=== PATIENT | female | born 1960 | race Caucasian/White ===

== ENCOUNTER 2017-11-17 08:56 | Emergency (ER) | payer BC ==
[2017-11-17 09:02] VITALS: RESP 18
[2017-11-17] MEDS ORDERED: MAG HYDROX/AL HYDROX/SIMETH 30 ML, HYOSCYAMINE ELIXIR 10 ML, CIMETIDINE HCL 300 MG, LID... PO STA ×4 (09:07)
--- NOTE | 2017-11-17 09:18 | ED ---
Abdominal Pain HPI - General Chief Complaint: Abdominal Pain Stated Complaint: ulcer pain Time Seen by Provider: 11/17/17 09:00 Source: patient, RN notes reviewed Mode of arrival: ambulatory Limitations: no limitations - History of Present Illness Initial Comments: This is a 57-year-old female presents emergency Department with chief complaint of epigastric pain. Patient states started swelling. She has ongoing issues with ulcers and gastritis. She states that she's had multiple scopes with no perforation and no bleeding ulcers. Patient states that she takes multiple antacids every morning states that she did take some this morning but she does not have relief of her normal symptoms. She states that she will want a GI cocktail. Patient states that she's had come the ER for the past. She states that she does not want any pain meds and is refusing lab work at this time. Denies any chest pain, shortness breath, fever, chills, diarrhea constipation. - Related Data Home Medications Medication Instructions Recorded Confirmed No Known Home Medications 11/17/17 11/17/17 Allergies Allergy/AdvReac Type Severity Reaction Status Date / Time No Known Allergies Allergy Verified 11/17/17 09:35 Review of Systems ROS Statement: Those systems with pertinent positive or pertinent negative responses have been documented in the HPI. ROS Other: All systems not noted in ROS Statement are negative. Past Medical History Past Medical History: GERD/Reflux History of Any Multi-Drug Resistant Organisms: None Reported Past Surgical History: No Surgical Hx Reported Past Psychological History: No Psychological Hx Reported Smoking Status: Current every day smoker Past Alcohol Use History: None Reported Past Drug Use History: None Reported General Exam Limitations: no limitations General appearance: alert, in no apparent distress Head exam: Present: atraumatic, normocephalic, normal inspection Neck exam: Present: normal inspection. Absent: tenderness, meningismus, lymphadenopathy Respiratory exam: Present: normal lung sounds bilaterally. Absent: respiratory distress, wheezes, rales, rhonchi, stridor Cardiovascular Exam: Present: regular rate, normal rhythm, normal heart sounds. Absent: systolic murmur, diastolic murmur, rubs, gallop, clicks GI/Abdominal exam: Present: soft, tenderness (moderate epigastric ), normal bowel sounds. Absent: distended, guarding, rebound, rigid Back exam: Absent: CVA tenderness (R), CVA tenderness (L) Skin exam: Present: warm, dry, intact, normal color. Absent: rash Course Vital Signs 11/17/17 08:59 Temperature 97.7 F Pulse Rate 79 Respiratory 18 Rate Blood Pressure 126/78 O2 Sat by Pulse 98 Oximetry Medical Decision Making - Medical Decision Making 57-year-old female presented for epigastric pain requesting GI cocktail. Patient was given GI cocktail states over symptoms have resolved. Patient states she is symptom-free. I did recommend lab work and imaging but she has refused she does understand the risk. Patient will be discharged at this time return parameters were discussed. Disposition Clinical Impression: Epigastric abdominal pain, Gastritis Disposition: HOME SELF-CARE Condition: Stable Instructions: Abdominal Pain (ED) Additional Instructions: Please return to the Emergency Department if symptoms worsen or any other concerns. Is patient prescribed a controlled substance at d/c from ED?: No Referrals: Joseph Jay DO [Primary Care Provider] - 1-2 days Time of Disposition: 09:41
[2017-11-17 09:42] VITALS: BP 127/58; PULSE 72; TEMP 97
== END 2017-11-17 09:45 | disposition home or self-care (01) ==
LOC: EC 08:56
DX: K29.70 Gastritis, unspecified, without bleeding (principal); F17.200 Nicotine dependence, unspecified, uncomplicated
CPT/HCPCS: 99283

== ENCOUNTER 2019-05-03 13:40 | Emergency (ER) | payer BC ==
--- NOTE | 2019-05-03 15:26 | XR ---
EXAMINATION TYPE: XR chest 2V DATE OF EXAM: 05/03/2019 COMPARISON: NONE HISTORY: Cough and congestion. TECHNIQUE: Frontal and lateral views of the chest are obtained. FINDINGS: There is no focal air space opacity, pleural effusion, or pneumothorax seen. The cardiac silhouette size is within normal limits. Rounded density over stomach on frontal view does not projec t over stomach on lateral view presumed external to patient. The osseous structures are intact. IMPRESSION: No suspicious acute infiltrate.
[2019-05-03] MEDS ORDERED: KETOROLAC 30 MG/ML 1 ML VIAL IM STA (15:50)
--- NOTE | 2019-05-03 15:55 | ED ---
URI HPI - General Chief Complaint: Upper Respiratory Infection Stated Complaint: bronchitis Time Seen by Provider: 05/03/19 15:38 Source: patient Mode of arrival: ambulatory Limitations: no limitations - History of Present Illness Initial Comments: Patient is a 58-year-old female presenting to the emergency Department with complaints of cough, congestion, headache for 3 days. Patient went to [facility] ago for same complaint and influenza swab was negative. Patient was started on Augmentin and has been doing [id number] medications for her cough. She states that her symptoms are still persisting and they did not do a chest x-ray at last hospital. Patient denies history of asthma or COPD. Patient has no other pertinent past medical history. Patient denies fever, chills, nausea, vomiting. Patient has no other complaints at this time. Upon arrival to the ER, Patient is slightly febrile at 99.9, rest of vitals normal. - Related Data Previous Rx's Medication Instructions Recorded methylPREDNISolone [Medrol Dose 4 mg PO DIRECTED #1 pack 05/03/19 Pack] Allergies Allergy/AdvReac Type Severity Reaction Status Date / Time No Known Allergies Allergy Verified 05/03/19 15:04 Review of Systems ROS Statement: Those systems with pertinent positive or pertinent negative responses have been documented in the HPI. ROS Other: All systems not noted in ROS Statement are negative. Past Medical History Past Medical History: GERD/Reflux History of Any Multi-Drug Resistant Organisms: None Reported Past Surgical History: No Surgical Hx Reported Past Psychological History: No Psychological Hx Reported Smoking Status: Current every day smoker Past Alcohol Use History: None Reported Past Drug Use History: None Reported General Exam - General Exam Comments Initial Comments: GENERAL: Well-appearing, well-nourished and in no acute distress, but appears uncomfortable. HEAD: Atraumatic, normocephalic. EYES: Pupils equal round and reactive to light, extraocular movements intact, sclera anicteric, conjunctiva are normal. ENT: TMs normal, nares patent, oropharynx clear without exudates. Moist mucous membranes. NECK: Normal range of motion, supple without lymphadenopathy or JVD. LUNGS: Mild wheezes present bilaterally. No rhonchi. HEART: Regular rate and rhythm without murmurs, rubs or gallops. ABDOMEN: Soft, nontender, normoactive bowel sounds. No guarding, no rebound. No masses appreciated. : Deferred EXTREMITIES: Normal range of motion, no pitting or edema. No clubbing or cyanosis. NEUROLOGICAL: Normal speech, normal gait. PSYCH: Normal mood, normal affect. SKIN: Warm, Dry, normal turgor, no rashes or lesions noted. Limitations: no limitations Course Vital Signs 05/03/19 05/03/19 15:01 16:06 Temperature 99.9 F H 97.8 F Pulse Rate 81 92 Respiratory 22 20 Rate Blood Pressure 104/70 124/76 O2 Sat by Pulse 99 98 Oximetry Medical Decision Making - Medical Decision Making Patient is 58-year-old female presenting with cough, congestion, headache 3 days. Patient was seen at [facility] and influenza was negative. She was started on Augmentin. Chest x-ray today shows no acute abnormalities. I discussed these findings with the patient. Patient will continue with Augmentin and I will add on steroid Dosepak today. Patient was given also given Toradol injection for headache relief. Patient will continue with Tylenol for symptom control. She is stable for discharge at this time. She is in agreement with this plan of care. Return parameters were discussed with the patient she verbalized understanding. Case discussed with Dr. Garnica. Disposition Clinical Impression: Upper respiratory tract infection, Bronchitis Disposition: HOME SELF-CARE Condition: Stable Instructions (If sedation given, give patient instructions): Acute Bronchitis (ED) Additional Instructions: Please return to the Emergency Department if symptoms worsen or any other concerns. Continue with antibiotic as prescribed. Start steroids as discussed Continue with Tylenol as needed for headache. Prescriptions: methylPREDNISolone [Medrol Dose Pack] 4 mg PO DIRECTED #1 pack Is patient prescribed a controlled substance at d/c from ED?: No Referrals: Joseph Jay DO [Primary Care Provider] - 1-2 days
[2019-05-03 16:09] VITALS: BP 124/76; PULSE 92; RESP 20; TEMP 97.8
== END 2019-05-03 16:06 | disposition home or self-care (01) ==
LOC: EC 13:40
DX: J06.9 Acute upper respiratory infection, unspecified (principal); J40 Bronchitis, not specified as acute or chronic; F17.200 Nicotine dependence, unspecified, uncomplicated
CPT/HCPCS: 71046; 99283; 96372; J1885

== ENCOUNTER 2024-04-16 14:07 | Emergency (ER) | payer OTHER, BC ==
[2024-04-16 14:24] VITALS: TEMP 98.3
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
[2024-04-16 16:40] VITALS: BP 120/76; PULSE 74; RESP 18
== END 2024-04-16 16:40 | disposition home or self-care (01) ==
LOC: EC 14:07
DX: S16.1XXA Strain of muscle, fascia and tendon at neck level, initial encounter (principal); F17.290 Nicotine dependence, other tobacco product, uncomplicated; V53.5XXA Driver of pick-up truck or van injured in collision with car, pick-up truck or van in traffic accident, initial encounter; Y92.410 Unspecified street and highway as the place of occurrence of the external cause
CPT/HCPCS: 72125; 70450; 99283; L0120